=== PATIENT | female | born 1940 | race Hispanic/Latino ===

== ENCOUNTER 2021-04-05 19:46 | Inpatient (IN) | payer MEDICARE, SELFPAY ==
[2021-04-05 20:11] LABS: #Basophils 0.1 thou/uL (0.0-0.2); #Lymphocytes 1.5 thou/uL (1.20-3.40); #Monocytes 0.5 thou/uL (0.11-0.59); #Neutrophils 10.1 thou/uL (1.40-6.50); %Basophils 0.9 % (0.0-1.0); %Lymphocytes 12.2 % (21.0-51.0); %Monocytes 3.7 % (0.0-10.0); %Neutrophils 83.1 % (42.0-75.0); Hemoglobin 12.7 g/dL (12.0-16.0); Mean Corpuscular HGB CONC 33.1 g/dL (32.0-36.0); Mean Corpuscular Hemoglobin 32.9 pg (27.0-31.0); Mean Corpuscular Volume 99.5 fL (78.0-98.0); Mean Platelet Volume 6.7 fL (7.4-10.4); Platelet Count 297 thou/uL (130-400); RBC Distribution Width 13.4 % (11.5-14.5); Red Blood Cell (RBC) Count 3.85 mill/uL (4.20-5.40); White Blood Cell (WBC) Count 12.1 thou/uL (4.8-10.8)
[2021-04-05] MEDS ORDERED: Glycopyrrolate 0.4 MG/ 2 ML VIAL ONE (20:14)
[2021-04-05] MEDS ORDERED: Famotidine In NaCl 20 mg/50 ml Premix Bag ONE (20:14)
[2021-04-05] MEDS ORDERED: Ondansetron PF 4 MG/2 ML Vial ONE ×2 (20:14)
[2021-04-05] MEDS ORDERED: Ondansetron ODT 4 MG TAB ONE (20:14)
[2021-04-05 20:30] LABS: ALT (SGPT) 27 U/L (8-55); AST (SGOT) 77 U/L (5-34); Alkaline Phosphatase 121 U/L (40-110); Anion Gap 20 mmol/L (10-20); BUN (Urea Nitrogen) 9 mg/dL (9.8-20.1); Bilirubin, Total 1.1 mg/dL (0.2-1.2); Calc. Creatinine Clearance 0 mL/min (70-130); Calcium 8.4 mg/dL (7.8-10.44); Carbon Dioxide 16 mmol/L (23-31); Chloride 111 mmol/L (98-107); Globulin 2.5 g/dL (2.4-3.5); Glucose 239 mg/dL (83-110); Lipase 7 U/L (8-78); Protein, Total 5.5 g/dL (5.8-8.1); Sodium 144 mmol/L (136-145)
[2021-04-05 21:43] LABS: Bilirubin Negative (Negative); Blood, Urine Negative (Negative); Clarity Clear (Clear); Glucose, Urine (Dipstick) 250 mg/dL (Negative); Ketone, Urine 40 mg/dL (Negative); Leukocyte Small (Negative); Nitrite Negative (Negative); Protein, Urine (Dipstick) Negative (Neg-Trace); Urobilinogen 0.2 mg/dL (Less than 2)
[2021-04-05 22:02] LABS: Bacteria/HPF 3+ HPF (None Seen); RBC/HPF 0-3 HPF (0-3)
[2021-04-05] MEDS ORDERED: cefTRIAXone\\ROCEPHIN 2 GM VIAL ONE (22:07)
[2021-04-05] MEDS ORDERED: Sodium Chloride 0.9% 100 ML ONE (22:08)
[2021-04-05 23:02] VITALS: BMI 24.2
[2021-04-05 23:20] LABS: SARS-CoV-2 NAA Rapid Test Not Detected (NotDetected)
[2021-04-06] MEDS: NS 0.9% w/ 20 MEQ KCL 1,000 ML IV SCH ×2 (00:29→17:39)
[2021-04-06] MEDS ORDERED: Ondansetron PF 4 MG/2 ML Vial IVP PRN (00:30)
[2021-04-06] MEDS ORDERED: Acetaminophen 325 MG TAB PO PRN ×2 (00:30→12:24)
[2021-04-06 03:45] LABS: Lactic Acid 5.8 mmol/L (0.5-2.2)
[2021-04-06] MEDS: Ondansetron ODT 4 MG TAB SL PRN (04:32)
[2021-04-06] MEDS ORDERED: Polyethylene Glycol 3350 17 GM Packet PO PRN (06:19)
[2021-04-06] MEDS ORDERED: Dextrose 50% Abboject 50 ML SYRINGE SLOW IVP PRN (06:56)
[2021-04-06] MEDS ORDERED: HumaLOG 300 UNITS/3 ML VIAL SC PRN (06:56)
[2021-04-06] MEDS ORDERED: Dextrose 5% in Water 1,000 ML IV PRN (06:56)
[2021-04-06 07:04] LABS: #Basophils 0.1 thou/uL (0.0-0.2); #Lymphocytes 0.8 thou/uL (1.20-3.40); #Monocytes 0.5 thou/uL (0.11-0.59); #Neutrophils 9.7 thou/uL (1.40-6.50); %Basophils 0.5 % (0.0-1.0); %Eosinophils 0.1 % (0.0-10.0); %Lymphocytes 7.4 % (21.0-51.0); %Monocytes 4.3 % (0.0-10.0); %Neutrophils 87.8 % (42.0-75.0); Hemoglobin 11.4 g/dL (12.0-16.0); Mean Corpuscular HGB CONC 32.7 g/dL (32.0-36.0); Mean Corpuscular Hemoglobin 32.6 pg (27.0-31.0); Mean Corpuscular Volume 99.9 fL (78.0-98.0); Mean Platelet Volume 6.7 fL (7.4-10.4); Platelet Count 292 thou/uL (130-400); RBC Distribution Width 13.3 % (11.5-14.5); Red Blood Cell (RBC) Count 3.51 mill/uL (4.20-5.40)
[2021-04-06 07:16] LABS: ALT (SGPT) 26 U/L (8-55); AST (SGOT) 51 U/L (5-34); Albumin 3.1 g/dL (3.4-4.8); Alkaline Phosphatase 106 U/L (40-110); Anion Gap 19 mmol/L (10-20); BUN (Urea Nitrogen) 7 mg/dL (9.8-20.1); Bilirubin, Total 0.8 mg/dL (0.2-1.2); Calc. Creatinine Clearance 55 mL/min (70-130); Calcium 8.2 mg/dL (7.8-10.44); Carbon Dioxide 14 mmol/L (23-31); Chloride 117 mmol/L (98-107); Globulin 3.4 g/dL (2.4-3.5); Glucose 212 mg/dL (83-110); Potassium 3.9 mmol/L (3.5-5.1); Protein, Total 6.5 g/dL (5.8-8.1); Sodium 146 mmol/L (136-145)
[2021-04-06] MEDS ORDERED: FLU VACC QS2021-22(65YR UP)/PF 240 MCG/0.7 ML SYRINGE IM ONE (09:00)
[2021-04-06] MEDS: Enoxaparin Sodium 40 MG/0.4 ML SYRINGE SC SCH (09:30)
[2021-04-06] MEDS: Pantoprazole 40 MG GRANULES PACKET PO SCH (09:31)
[2021-04-06] MEDS: Saccharomyces boulardii 250 MG CAP PO SCH (09:31)
[2021-04-06] MEDS ORDERED: Sodium Bicarbonate 50 MEQ in Sodium Chloride 0.45% 1,000 ML IV SCH (12:15)
[2021-04-06] MEDS ORDERED: Sodium Bicarb 50 MEQ/50 ML Abboject 8.4% SYRINGE ONE (13:04)
[2021-04-06] MEDS: metFORMIN 500 MG TAB PO SCH (17:24)
[2021-04-06] MEDS: cefTRIAXone\\ROCEPHIN 1 GM in Sodium Chloride 0.9% 100 ML IVPB SCH (20:19)
[2021-04-06] MEDS: levETIRAcetam 250 MG TAB PO SCH (20:20)
[2021-04-06] MEDS: Lacosamide 50 mg Tablet PO SCH (20:21)
[2021-04-07 06:33] LABS: #Lymphocytes 1.1 thou/uL (1.20-3.40); #Monocytes 0.6 thou/uL (0.11-0.59); #Neutrophils 9.6 thou/uL (1.40-6.50); %Basophils 0.4 % (0.0-1.0); %Lymphocytes 9.8 % (21.0-51.0); %Monocytes 5.6 % (0.0-10.0); %Neutrophils 84.2 % (42.0-75.0); Hemoglobin 13.5 g/dL (12.0-16.0); Mean Corpuscular HGB CONC 33.4 g/dL (32.0-36.0); Mean Corpuscular Hemoglobin 32.9 pg (27.0-31.0); Mean Corpuscular Volume 98.6 fL (78.0-98.0); Mean Platelet Volume 6.6 fL (7.4-10.4); Platelet Count 264 thou/uL (130-400); White Blood Cell (WBC) Count 11.4 thou/uL (4.8-10.8)
[2021-04-07 06:41] LABS: Lactic Acid 1.9 mmol/L (0.5-2.2)
[2021-04-07 06:48] LABS: ALT (SGPT) 25 U/L (8-55); AST (SGOT) 50 U/L (5-34); Alkaline Phosphatase 100 U/L (40-110); Anion Gap 18 mmol/L (10-20); BUN (Urea Nitrogen) 9 mg/dL (9.8-20.1); Bilirubin, Total 0.8 mg/dL (0.2-1.2); Calc. Creatinine Clearance 51 mL/min (70-130); Calcium 8.5 mg/dL (7.8-10.44); Carbon Dioxide 14 mmol/L (23-31); Chloride 115 mmol/L (98-107); Globulin 3.4 g/dL (2.4-3.5); Glucose 153 mg/dL (83-110); Potassium 3.5 mmol/L (3.5-5.1); Protein, Total 6.4 g/dL (5.8-8.1); Sodium 143 mmol/L (136-145)
[2021-04-07] MEDS: Potassium Chloride 20 MEQ TAB PO SCH ×2 (09:17→09:50)
[2021-04-07] MEDS: Amlodipine 10 MG TAB PO SCH (09:47)
[2021-04-07] MEDS: levETIRAcetam 250 MG TAB PO SCH ×2 (09:47→20:34)
[2021-04-07] MEDS: metFORMIN 500 MG TAB PO SCH ×3 (09:48→18:10)
[2021-04-07] MEDS: Gabapentin 300 MG CAP PO SCH ×2 (09:48→12:08)
[2021-04-07] MEDS: Saccharomyces boulardii 250 MG CAP PO SCH (09:49)
[2021-04-07] MEDS: Enoxaparin Sodium 40 MG/0.4 ML SYRINGE SC SCH (09:50)
[2021-04-07] MEDS: Docusate 100 MG CAP PO SCH (09:51)
[2021-04-07] MEDS: Lacosamide 50 mg Tablet PO SCH (12:51)
[2021-04-07] MEDS: Pantoprazole 40 MG GRANULES PACKET PO SCH (12:51)
[2021-04-07] MEDS: Sodium Chloride 0.9% 1,000 ML IV SCH (13:00)
[2021-04-07] MEDS ORDERED: Acetaminophen 325 MG TAB PO PRN ×2 (13:46→19:13)
[2021-04-07] MEDS ORDERED: Iopamidol 370 76% 100 ML VIAL ONE (16:52)
[2021-04-07] MEDS: Ondansetron ODT 4 MG TAB SL PRN (17:37)
[2021-04-07] MEDS ORDERED: Ondansetron ODT 4 MG TAB SL PRN (19:30)
[2021-04-07] MEDS ORDERED: Ondansetron PF 4 MG/2 ML Vial IVP PRN (19:30)
[2021-04-07] MEDS: cefTRIAXone\\ROCEPHIN 1 GM in Sodium Chloride 0.9% 100 ML IVPB SCH (20:33)
[2021-04-08 05:39] LABS: Calc. Creatinine Clearance 66 mL/min (70-130)
[2021-04-08 06:55] VITALS: TEMP 98.7
[2021-04-08 07:56] LABS: #Monocytes 0.7 thou/uL (0.11-0.59); #Neutrophils 6.1 thou/uL (1.40-6.50); %Basophils 0.5 % (0.0-1.0); %Eosinophils 0.1 % (0.0-10.0); %Lymphocytes 22.9 % (21.0-51.0); %Monocytes 7.7 % (0.0-10.0); %Neutrophils 68.8 % (42.0-75.0); Hemoglobin 11.3 g/dL (12.0-16.0); Mean Corpuscular Hemoglobin 32.7 pg (27.0-31.0); Mean Platelet Volume 6.1 fL (7.4-10.4); Platelet Count 255 thou/uL (130-400); RBC Distribution Width 12.8 % (11.5-14.5); Red Blood Cell (RBC) Count 3.46 mill/uL (4.20-5.40); White Blood Cell (WBC) Count 8.8 thou/uL (4.8-10.8)
[2021-04-08 08:09] LABS: ALT (SGPT) 20 U/L (8-55); AST (SGOT) 39 U/L (5-34); Albumin 2.6 g/dL (3.4-4.8); Alkaline Phosphatase 79 U/L (40-110); Anion Gap 15 mmol/L (10-20); BUN (Urea Nitrogen) 7 mg/dL (9.8-20.1); Bilirubin, Total 0.7 mg/dL (0.2-1.2); Calc. Creatinine Clearance 64 mL/min (70-130); Calcium 8.2 mg/dL (7.8-10.44); Carbon Dioxide 20 mmol/L (23-31); Chloride 112 mmol/L (98-107); Globulin 2.7 g/dL (2.4-3.5); Glucose 117 mg/dL (83-110); Protein, Total 5.3 g/dL (5.8-8.1); Sodium 144 mmol/L (136-145)
[2021-04-08] MEDS ORDERED: Potassium Chloride 20 MEQ TAB PO SCH ×2 (08:31→08:45)
[2021-04-08] MEDS: Enoxaparin Sodium 40 MG/0.4 ML SYRINGE SC SCH (09:32)
[2021-04-08] MEDS: levETIRAcetam 250 MG TAB PO SCH (09:36)
[2021-04-08] MEDS: Amlodipine 10 MG TAB PO SCH (09:42)
[2021-04-08] MEDS ORDERED: 1/2 NS w/KCL 20 mEq 1,000 ML IV SCH (09:45)
[2021-04-08] MEDS: Ondansetron ODT 4 MG TAB SL PRN (11:57)
[2021-04-08] MEDS: Docusate 100 MG CAP PO SCH (12:03)
[2021-04-08] MEDS: metFORMIN 500 MG TAB PO SCH ×2 (12:04→18:04)
[2021-04-08] MEDS: Gabapentin 300 MG CAP PO SCH (12:04)
[2021-04-08] MEDS: Saccharomyces boulardii 250 MG CAP PO SCH (12:05)
[2021-04-08] MEDS: Sodium Chloride 0.9% 1,000 ML IV SCH (17:12)
[2021-04-08] MEDS: Potassium Chloride 20 MEQ TAB PO SCH (17:12)
[2021-04-08] MEDS ORDERED: Nitrofurantoin Macrocrystal 50 MG CAP PO SCH ×2 (17:30→21:00)
[2021-04-08 18:33] VITALS: BP 145/75
== END 2021-04-08 18:39 | DRG 690 ==
LOC: BURERS 19:46 → BURMED 20:15
PROVIDERS: ADMIT Family Medicine; ATTEND Family Medicine
DX: N39.0 Urinary tract infection, site not specified (principal); E87.2 Acidosis; E86.0 Dehydration; E87.6 Hypokalemia; I10 Essential (primary) hypertension; K59.00 Constipation, unspecified; R53.1 Weakness; Z20.822 Contact with and (suspected) exposure to COVID-19; E11.9 Type 2 diabetes mellitus without complications; Z86.73 Personal history of transient ischemic attack (TIA), and cerebral infarction without residual deficits; Z90.710 Acquired absence of both cervix and uterus
CPT/HCPCS: 36415; 36416; 70450; 71045; 74018; 74177; 80053; 81003; 81015; 82565; 83605; 83690; 85025; 87040; 87077; 87086; 87186; 96365; 96367; 96375; J0696; J1650; J1815; J1956; J2405; J3480; J3490; J7050; Q0162; Q9967; U0002

== ENCOUNTER 2021-04-08 18:46 | Inpatient (IN) | payer MEDICARE ==
[2021-04-08] MEDS ORDERED: Dextrose 50% Abboject 50 ML SYRINGE SLOW IVP PRN (19:41)
[2021-04-08] MEDS ORDERED: 1/2 NS w/KCL 20 mEq 1,000 ML IV SCH (19:41)
[2021-04-08] MEDS ORDERED: Polyethylene Glycol 3350 17 GM Packet PO PRN (19:41)
[2021-04-08] MEDS ORDERED: Acetaminophen 325 MG TAB PO PRN ×2 (19:41)
[2021-04-08] MEDS ORDERED: Dextrose 5% in Water 1,000 ML IV PRN (19:41)
[2021-04-08] MEDS ORDERED: Ondansetron PF 4 MG/2 ML Vial IVP PRN (19:41)
[2021-04-08] MEDS ORDERED: Nitrofurantoin Macrocrystal 50 MG CAP PO SCH (19:41)
[2021-04-08 19:53] VITALS: BMI 24.1
[2021-04-08] MEDS: levETIRAcetam 250 MG TAB PO SCH (21:12)
[2021-04-08] MEDS: Nitrofurantoin Macrocrystal 50 MG CAP PO SCH (21:26)
[2021-04-09 07:00] LABS: Anion Gap 13 mmol/L (10-20); BUN (Urea Nitrogen) Less than 4 mg/dL (9.8-20.1); Calc. Creatinine Clearance 77 mL/min (70-130); Calcium 8.1 mg/dL (7.8-10.44); Carbon Dioxide 26 mmol/L (23-31); Chloride 106 mmol/L (98-107); Glucose 98 mg/dL (83-110); Sodium 142 mmol/L (136-145)
[2021-04-09 07:19] LABS: Potassium 2.7 mmol/L (3.5-5.1)
[2021-04-09] MEDS ORDERED: 1/2 NS w/KCL 20 mEq 1,000 ML IV SCH (08:51)
[2021-04-09] MEDS ORDERED: Potassium Chloride 40 MEQ in Sodium Chloride 0.45% 1,000 ML IVPB SCH (09:15)
[2021-04-09] MEDS: Nitrofurantoin Macrocrystal 50 MG CAP PO SCH ×4 (12:11→22:42)
[2021-04-09] MEDS: levETIRAcetam 250 MG TAB PO SCH ×2 (12:11→22:14)
[2021-04-09] MEDS: Saccharomyces boulardii 250 MG CAP PO SCH (12:12)
[2021-04-09] MEDS: HumaLOG 300 UNITS/3 ML VIAL SC PRN (12:13)
[2021-04-09] MEDS: Docusate 100 MG CAP PO SCH (12:16)
[2021-04-09] MEDS: Amlodipine 10 MG TAB PO SCH (12:17)
[2021-04-09] MEDS: Enoxaparin Sodium 40 MG/0.4 ML SYRINGE SC SCH (12:17)
[2021-04-09] MEDS: Gabapentin 300 MG CAP PO SCH (12:19)
[2021-04-09] MEDS ORDERED: NS 0.9% w/ 40 MEQ KCL 1,000 ML IV SCH (12:30)
[2021-04-09] MEDS: metFORMIN 500 MG TAB PO SCH ×2 (12:51→17:41)
[2021-04-09] MEDS: Ondansetron ODT 4 MG TAB SL PRN (15:41)
[2021-04-09] MEDS: Nystatin 500,000 UNITS/5 ML UDCUP SSW SCH ×2 (17:43→22:15)
[2021-04-10 06:43] LABS: Anion Gap 14 mmol/L (10-20)
[2021-04-10 06:46] LABS: BUN (Urea Nitrogen) 4 mg/dL (9.8-20.1); Calc. Creatinine Clearance 77 mL/min (70-130); Calcium 7.9 mg/dL (7.8-10.44); Carbon Dioxide 16 mmol/L (23-31); Chloride 114 mmol/L (98-107); Glucose 103 mg/dL (83-110); Potassium 4.2 mmol/L (3.5-5.1); Sodium 140 mmol/L (136-145)
[2021-04-10] MEDS: Sodium Bicarbonate Tab 325 MG TAB PO SCH (10:39)
[2021-04-10] MEDS: levETIRAcetam 250 MG TAB PO SCH ×2 (10:39→20:25)
[2021-04-10] MEDS: Amlodipine 10 MG TAB PO SCH (10:39)
[2021-04-10] MEDS: Docusate 100 MG CAP PO SCH (10:39)
[2021-04-10] MEDS: Saccharomyces boulardii 250 MG CAP PO SCH (10:39)
[2021-04-10] MEDS: Enoxaparin Sodium 40 MG/0.4 ML SYRINGE SC SCH (10:40)
[2021-04-10] MEDS: Nystatin 500,000 UNITS/5 ML UDCUP SSW SCH ×4 (10:40→20:25)
[2021-04-10] MEDS: Ondansetron ODT 4 MG TAB SL PRN (11:05)
[2021-04-10] MEDS: Nitrofurantoin Macrocrystal 50 MG CAP PO SCH ×4 (11:05→20:25)
[2021-04-10] MEDS ORDERED: Scopolamine 1.5 mg/72 hour Patch TD SCH (12:00)
[2021-04-10] MEDS: Gabapentin 300 MG CAP PO SCH (16:06)
[2021-04-10] MEDS: metFORMIN 500 MG TAB PO SCH ×2 (16:06→17:36)
[2021-04-10] MEDS: Pantoprazole 40 MG GRANULES PACKET PO SCH (16:07)
[2021-04-11 06:24] LABS: Hemoglobin 11.9 g/dL (12.0-16.0); Platelet Count 255 thou/uL (130-400)
[2021-04-11 06:46] LABS: Calc. Creatinine Clearance 78 mL/min (70-130)
[2021-04-11 07:57] LABS: Anion Gap 14 mmol/L (10-20); BUN (Urea Nitrogen) 6 mg/dL (9.8-20.1); Calc. Creatinine Clearance 78 mL/min (70-130); Carbon Dioxide 20 mmol/L (23-31); Chloride 108 mmol/L (98-107); Glucose 108 mg/dL (83-110); Sodium 139 mmol/L (136-145)
[2021-04-11] MEDS: Enoxaparin Sodium 40 MG/0.4 ML SYRINGE SC SCH (10:15)
[2021-04-11] MEDS: Nystatin 500,000 UNITS/5 ML UDCUP SSW SCH ×4 (10:16→20:49)
[2021-04-11] MEDS: levETIRAcetam 250 MG TAB PO SCH ×2 (10:18→20:49)
[2021-04-11] MEDS: metFORMIN 500 MG TAB PO SCH ×2 (10:19→17:04)
[2021-04-11] MEDS: Amlodipine 10 MG TAB PO SCH (10:19)
[2021-04-11] MEDS: Sodium Bicarbonate Tab 325 MG TAB PO SCH (10:20)
[2021-04-11] MEDS: Saccharomyces boulardii 250 MG CAP PO SCH (10:20)
[2021-04-11] MEDS: Nitrofurantoin Macrocrystal 50 MG CAP PO SCH ×4 (10:20→20:49)
[2021-04-11] MEDS: Pantoprazole 40 MG GRANULES PACKET PO SCH (10:20)
[2021-04-11] MEDS: Docusate 100 MG CAP PO SCH (10:21)
[2021-04-11] MEDS: Gabapentin 300 MG CAP PO SCH (10:21)
[2021-04-11] MEDS: Ondansetron ODT 4 MG TAB SL PRN (11:43)
[2021-04-11] MEDS: HumaLOG 300 UNITS/3 ML VIAL SC PRN (12:45)
[2021-04-12 00:53] LABS: SARS-CoV-2 PCR by NAA Not Detected (NotDetected)
[2021-04-12] MEDS: Ondansetron ODT 4 MG TAB SL PRN (10:00)
[2021-04-12] MEDS: Nystatin 500,000 UNITS/5 ML UDCUP SSW SCH ×4 (10:04→21:51)
[2021-04-12] MEDS: metFORMIN 500 MG TAB PO SCH ×2 (10:06→18:08)
[2021-04-12] MEDS: levETIRAcetam 250 MG TAB PO SCH ×2 (10:07→21:52)
[2021-04-12] MEDS: Amlodipine 10 MG TAB PO SCH (10:09)
[2021-04-12] MEDS: Nitrofurantoin Macrocrystal 50 MG CAP PO SCH ×4 (10:09→21:51)
[2021-04-12] MEDS: Gabapentin 300 MG CAP PO SCH (10:12)
[2021-04-12] MEDS: Saccharomyces boulardii 250 MG CAP PO SCH (10:13)
[2021-04-12] MEDS: Docusate 100 MG CAP PO SCH (10:13)
[2021-04-12] MEDS: Pantoprazole 40 MG GRANULES PACKET PO SCH (10:13)
[2021-04-12] MEDS: Sodium Bicarbonate Tab 325 MG TAB PO SCH (10:13)
[2021-04-13] MEDS ORDERED: Polyethylene Glycol 3350 17 GM Packet PER TUBE PRN (20:12)
[2021-04-13] MEDS ORDERED: Dextrose 50% Abboject 50 ML SYRINGE SLOW IVP PRN (20:12)
[2021-04-13] MEDS ORDERED: Dextrose 5% in Water 1,000 ML IV PRN (20:13)
[2021-04-13] MEDS ORDERED: HumaLOG 300 UNITS/3 ML VIAL SC PRN (20:13)
[2021-04-13] MEDS ORDERED: levETIRAcetam 500 mg/5 ml Oral Solution PO SCH (21:00)
[2021-04-13] MEDS ORDERED: traMADol HCl 50 MG TAB PO PRN (22:52)
[2021-04-14] MEDS ORDERED: Dextrose 50% Abboject 50 ML SYRINGE SLOW IVP PRN (00:01)
[2021-04-14] MEDS ORDERED: Polyethylene Glycol 3350 17 GM Packet PER TUBE PRN (00:01)
[2021-04-14] MEDS ORDERED: Dextrose 5% in Water 1,000 ML IV PRN (00:01)
[2021-04-14] MEDS: Scopolamine 1.5 mg/72 hour Patch TD SCH (00:45)
[2021-04-14 05:24] LABS: Platelet Count 312 thou/uL (130-400)
[2021-04-14 05:55] LABS: Calc. Creatinine Clearance 73 mL/min (70-130)
[2021-04-14 06:13] LABS: Anion Gap 16 mmol/L (10-20); BUN (Urea Nitrogen) 8 mg/dL (9.8-20.1); Calc. Creatinine Clearance 74 mL/min (70-130); Calcium 8.6 mg/dL (7.8-10.44); Carbon Dioxide 21 mmol/L (23-31); Chloride 106 mmol/L (98-107); Glucose 102 mg/dL (83-110); Potassium 3.8 mmol/L (3.5-5.1); Sodium 139 mmol/L (136-145)
[2021-04-14] MEDS: Enoxaparin Sodium 40 MG/0.4 ML SYRINGE SC SCH (08:52)
[2021-04-14] MEDS: Pantoprazole 40 MG GRANULES PACKET PER TUBE SCH (08:53)
[2021-04-14] MEDS: Nystatin 500,000 UNITS/5 ML UDCUP SSW SCH ×4 (08:53→21:56)
[2021-04-14] MEDS: metFORMIN 500 MG TAB PER TUBE SCH ×2 (08:54→16:39)
[2021-04-14] MEDS: Sodium Bicarbonate Tab 325 MG TAB PER TUBE SCH (08:54)
[2021-04-14] MEDS: Nitrofurantoin Macrocrystal 50 MG CAP PER TUBE SCH ×4 (08:55→21:55)
[2021-04-14] MEDS: Amlodipine 10 MG TAB PER TUBE SCH (08:55)
[2021-04-14] MEDS: Gabapentin 300 MG CAP PO SCH (08:55)
[2021-04-14] MEDS: levETIRAcetam 250 MG TAB PER TUBE SCH ×2 (08:58→23:40)
[2021-04-14] MEDS: Saccharomyces boulardii 250 MG CAP PER TUBE SCH (08:59)
[2021-04-14] MEDS ORDERED: Docusate 100 MG CAP PER TUBE SCH (09:00)
[2021-04-14] MEDS: Ondansetron ODT 4 MG TAB SL PRN (10:49)
[2021-04-14] MEDS ORDERED: levETIRAcetam 500 mg/5 ml Oral Solution PER TUBE SCH (21:45)
[2021-04-14] MEDS: Acetaminophen 325 MG TAB PER TUBE PRN (21:56)
[2021-04-15] MEDS: Docusate Sodium 100 MG/10 ML UDCUP PER TUBE SCH (09:23)
[2021-04-15] MEDS: metFORMIN 500 MG TAB PER TUBE SCH ×2 (09:23→18:00)
[2021-04-15] MEDS: Saccharomyces boulardii 250 MG CAP PER TUBE SCH (09:24)
[2021-04-15] MEDS: Amlodipine 10 MG TAB PER TUBE SCH (09:24)
[2021-04-15] MEDS: Gabapentin 300 MG CAP PO SCH (09:24)
[2021-04-15] MEDS: Nitrofurantoin Macrocrystal 50 MG CAP PER TUBE SCH ×5 (09:24→21:15)
[2021-04-15] MEDS: Nystatin 500,000 UNITS/5 ML UDCUP SSW SCH ×4 (09:24→21:07)
[2021-04-15] MEDS: Pantoprazole 40 MG GRANULES PACKET PER TUBE SCH (09:25)
[2021-04-15] MEDS: Enoxaparin Sodium 40 MG/0.4 ML SYRINGE SC SCH (09:25)
[2021-04-15] MEDS: Sodium Bicarbonate Tab 325 MG TAB PER TUBE SCH (09:25)
[2021-04-15] MEDS: levETIRAcetam 500 mg/5 ml Oral Solution PER TUBE SCH ×3 (09:27→21:14)
[2021-04-15] MEDS: Ondansetron ODT 4 MG TAB SL PRN (18:00)
[2021-04-16] MEDS: Ondansetron ODT 4 MG TAB SL PRN ×2 (00:45→11:16)
[2021-04-16] MEDS: Docusate Sodium 100 MG/10 ML UDCUP PER TUBE SCH (09:40)
[2021-04-16] MEDS: levETIRAcetam 500 mg/5 ml Oral Solution PER TUBE SCH ×2 (09:40→20:05)
[2021-04-16] MEDS: Amlodipine 10 MG TAB PER TUBE SCH (09:41)
[2021-04-16] MEDS: Pantoprazole 40 MG GRANULES PACKET PER TUBE SCH (09:41)
[2021-04-16] MEDS: Sodium Bicarbonate Tab 325 MG TAB PER TUBE SCH (09:41)
[2021-04-16] MEDS: Gabapentin 300 MG CAP PO SCH (09:42)
[2021-04-16] MEDS: metFORMIN 500 MG TAB PER TUBE SCH ×2 (09:42→16:59)
[2021-04-16] MEDS: Enoxaparin Sodium 40 MG/0.4 ML SYRINGE SC SCH (09:42)
[2021-04-16] MEDS: Saccharomyces boulardii 250 MG CAP PER TUBE SCH (09:42)
[2021-04-16] MEDS: Nitrofurantoin Macrocrystal 50 MG CAP PER TUBE SCH ×4 (09:43→20:06)
[2021-04-16] MEDS: Nystatin 500,000 UNITS/5 ML UDCUP SSW SCH ×4 (09:44→20:06)
[2021-04-16] MEDS: HumaLOG 300 UNITS/3 ML VIAL SC PRN ×2 (12:03→20:06)
[2021-04-17] MEDS: Scopolamine 1.5 mg/72 hour Patch TD SCH ×2 (01:42→09:06)
[2021-04-17 05:39] LABS: Hemoglobin 11.3 g/dL (12.0-16.0); Platelet Count 287 thou/uL (130-400)
[2021-04-17 05:54] LABS: ALT (SGPT) 64 U/L (8-55); AST (SGOT) 200 U/L (5-34); Albumin 2.6 g/dL (3.4-4.8); Alkaline Phosphatase 245 U/L (40-110); Anion Gap 19 mmol/L (10-20); BUN (Urea Nitrogen) 19 mg/dL (9.8-20.1); Bilirubin, Total 2.3 mg/dL (0.2-1.2); Calc. Creatinine Clearance 39 mL/min (70-130); Calcium 8.7 mg/dL (7.8-10.44); Carbon Dioxide 19 mmol/L (23-31); Chloride 109 mmol/L (98-107); Globulin 2.3 g/dL (2.4-3.5); Glucose 215 mg/dL (83-110); Potassium 4.8 mmol/L (3.5-5.1); Protein, Total 4.9 g/dL (5.8-8.1); Sodium 142 mmol/L (136-145)
[2021-04-17] MEDS: levETIRAcetam 500 mg/5 ml Oral Solution PER TUBE SCH ×2 (08:42→20:31)
[2021-04-17] MEDS: Nystatin 500,000 UNITS/5 ML UDCUP SSW SCH ×4 (08:42→20:31)
[2021-04-17] MEDS: Sodium Bicarbonate Tab 325 MG TAB PER TUBE SCH (08:43)
[2021-04-17] MEDS: Pantoprazole 40 MG GRANULES PACKET PER TUBE SCH (08:43)
[2021-04-17] MEDS: Saccharomyces boulardii 250 MG CAP PER TUBE SCH (08:44)
[2021-04-17] MEDS: metFORMIN 500 MG TAB PER TUBE SCH ×2 (08:44→16:36)
[2021-04-17] MEDS: Gabapentin 300 MG CAP PO SCH (08:45)
[2021-04-17] MEDS: Enoxaparin Sodium 40 MG/0.4 ML SYRINGE SC SCH (08:46)
[2021-04-17] MEDS: Docusate Sodium 100 MG/10 ML UDCUP PER TUBE SCH ×2 (08:48→09:04)
[2021-04-17] MEDS: HumaLOG 300 UNITS/3 ML VIAL SC PRN ×2 (08:52→16:55)
[2021-04-17] MEDS: Amlodipine 10 MG TAB PER TUBE SCH (09:06)
[2021-04-17] MEDS: Nitrofurantoin Macrocrystal 50 MG CAP PER TUBE SCH ×4 (09:10→20:30)
[2021-04-17] MEDS ORDERED: Loperamide HCl 2 MG CAP PO PRN (14:56)
[2021-04-18 05:33] LABS: ALT (SGPT) 63 U/L (8-55); AST (SGOT) 159 U/L (5-34); Albumin 2.4 g/dL (3.4-4.8); Alkaline Phosphatase 273 U/L (40-110); Anion Gap 16 mmol/L (10-20); BUN (Urea Nitrogen) 19 mg/dL (9.8-20.1); Bilirubin, Total 2.3 mg/dL (0.2-1.2); Calc. Creatinine Clearance 58 mL/min (70-130); Calcium 8.5 mg/dL (7.8-10.44); Carbon Dioxide 21 mmol/L (23-31); Chloride 110 mmol/L (98-107); Globulin 2.3 g/dL (2.4-3.5); Glucose 214 mg/dL (83-110); Protein, Total 4.7 g/dL (5.8-8.1); Sodium 143 mmol/L (136-145)
[2021-04-18] MEDS: HumaLOG 300 UNITS/3 ML VIAL SC PRN ×2 (05:43→17:28)
[2021-04-18] MEDS: Nystatin 500,000 UNITS/5 ML UDCUP SSW SCH ×5 (09:17→21:57)
[2021-04-18] MEDS: levETIRAcetam 500 mg/5 ml Oral Solution PER TUBE SCH ×2 (09:17→21:56)
[2021-04-18] MEDS: Docusate Sodium 100 MG/10 ML UDCUP PER TUBE SCH (09:17)
[2021-04-18] MEDS: Sodium Bicarbonate Tab 325 MG TAB PER TUBE SCH (09:17)
[2021-04-18] MEDS: Saccharomyces boulardii 250 MG CAP PER TUBE SCH (09:18)
[2021-04-18] MEDS: Nitrofurantoin Macrocrystal 50 MG CAP PER TUBE SCH ×4 (09:18→21:57)
[2021-04-18] MEDS: metFORMIN 500 MG TAB PER TUBE SCH ×2 (09:18→16:32)
[2021-04-18] MEDS: Gabapentin 300 MG CAP PO SCH (09:19)
[2021-04-18] MEDS: Amlodipine 10 MG TAB PER TUBE SCH (09:19)
[2021-04-18] MEDS: Enoxaparin Sodium 40 MG/0.4 ML SYRINGE SC SCH (09:20)
[2021-04-18] MEDS: Pantoprazole 40 MG GRANULES PACKET PER TUBE SCH (09:21)
[2021-04-18] MEDS ORDERED: Potassium Bicarbonate/Cit Ac 25 MEQ TAB PER TUBE SCH (17:15)
[2021-04-18] MEDS ORDERED: Loperamide HCl 2 MG CAP PER TUBE PRN (17:15)
[2021-04-18] MEDS: Metoprolol Tartrate 50 MG TAB PER TUBE SCH (21:57)
[2021-04-19] MEDS: Pantoprazole 40 MG GRANULES PACKET PER TUBE SCH (10:11)
[2021-04-19] MEDS: Amlodipine 10 MG TAB PER TUBE SCH (10:11)
[2021-04-19] MEDS: Nitrofurantoin Macrocrystal 50 MG CAP PER TUBE SCH (10:12)
[2021-04-19] MEDS: Gabapentin 300 MG CAP PO SCH (10:12)
[2021-04-19] MEDS: metFORMIN 500 MG TAB PER TUBE SCH ×2 (10:12→17:08)
[2021-04-19] MEDS: Sodium Bicarbonate Tab 325 MG TAB PER TUBE SCH (10:13)
[2021-04-19] MEDS: Saccharomyces boulardii 250 MG CAP PER TUBE SCH (10:13)
[2021-04-19] MEDS: Enoxaparin Sodium 40 MG/0.4 ML SYRINGE SC SCH (10:14)
[2021-04-19] MEDS: Nystatin 500,000 UNITS/5 ML UDCUP SSW SCH ×4 (10:14→21:58)
[2021-04-19] MEDS: Docusate Sodium 100 MG/10 ML UDCUP PER TUBE SCH (10:14)
[2021-04-19] MEDS: Metoprolol Tartrate 50 MG TAB PER TUBE SCH ×2 (10:29→21:59)
[2021-04-19] MEDS: levETIRAcetam 500 mg/5 ml Oral Solution PER TUBE SCH ×2 (10:30→21:58)
[2021-04-19] MEDS: Potassium Bicarbonate/Cit Ac 25 MEQ TAB PER TUBE SCH (10:37)
[2021-04-19] MEDS: HumaLOG 300 UNITS/3 ML VIAL SC PRN ×2 (13:20→17:14)
[2021-04-19] MEDS ORDERED: levETIRAcetam 500 mg/5 ml Oral Solution PER TUBE SCH (22:00)
[2021-04-19] MEDS ORDERED: Metoprolol Tartrate 50 MG TAB PER TUBE SCH (22:00)
[2021-04-19 22:21] LABS: SARS-CoV-2 PCR by NAA Not Detected (NotDetected)
[2021-04-20 06:02] LABS: Hemoglobin 12.1 g/dL (12.0-16.0); Platelet Count 240 thou/uL (130-400)
[2021-04-20 06:13] LABS: Calc. Creatinine Clearance 62 mL/min (70-130)
[2021-04-20] MEDS: Docusate Sodium 100 MG/10 ML UDCUP PER TUBE SCH (09:08)
[2021-04-20] MEDS: Nystatin 500,000 UNITS/5 ML UDCUP SSW SCH ×5 (09:08→21:36)
[2021-04-20] MEDS: Scopolamine 1.5 mg/72 hour Patch TD SCH (09:09)
[2021-04-20] MEDS: levETIRAcetam 500 mg/5 ml Oral Solution PER TUBE SCH ×2 (09:09→21:17)
[2021-04-20] MEDS: Metoprolol Tartrate 50 MG TAB PER TUBE SCH ×2 (09:12→21:17)
[2021-04-20] MEDS: Saccharomyces boulardii 250 MG CAP PER TUBE SCH (09:12)
[2021-04-20] MEDS: Pantoprazole 40 MG GRANULES PACKET PER TUBE SCH (09:13)
[2021-04-20] MEDS: metFORMIN 500 MG TAB PER TUBE SCH ×2 (09:13→17:23)
[2021-04-20] MEDS: Gabapentin 300 MG CAP PO SCH (09:14)
[2021-04-20] MEDS: Amlodipine 10 MG TAB PER TUBE SCH (09:17)
[2021-04-20] MEDS: Enoxaparin Sodium 40 MG/0.4 ML SYRINGE SC SCH (09:18)
[2021-04-20] MEDS: Potassium Bicarbonate/Cit Ac 25 MEQ TAB PER TUBE SCH (09:20)
[2021-04-20] MEDS: HumaLOG 300 UNITS/3 ML VIAL SC PRN ×2 (09:21→13:36)
[2021-04-21 06:12] VITALS: TEMP 97.9
[2021-04-21] MEDS: Docusate Sodium 100 MG/10 ML UDCUP PER TUBE SCH (09:31)
[2021-04-21] MEDS: levETIRAcetam 500 mg/5 ml Oral Solution PER TUBE SCH (09:31)
[2021-04-21] MEDS: Nystatin 500,000 UNITS/5 ML UDCUP SSW SCH ×2 (09:31→12:46)
[2021-04-21] MEDS: Enoxaparin Sodium 40 MG/0.4 ML SYRINGE SC SCH (09:31)
[2021-04-21] MEDS: Pantoprazole 40 MG GRANULES PACKET PER TUBE SCH (09:32)
[2021-04-21] MEDS: metFORMIN 500 MG TAB PER TUBE SCH (09:33)
[2021-04-21] MEDS: Saccharomyces boulardii 250 MG CAP PER TUBE SCH (09:33)
[2021-04-21] MEDS: Metoprolol Tartrate 50 MG TAB PER TUBE SCH (09:34)
[2021-04-21] MEDS: Gabapentin 300 MG CAP PO SCH (09:34)
[2021-04-21] MEDS: Amlodipine 10 MG TAB PER TUBE SCH (09:35)
[2021-04-21] MEDS: Sodium Bicarbonate Tab 325 MG TAB PER TUBE SCH (09:35)
[2021-04-21 09:38] VITALS: BP 158/79
[2021-04-21] MEDS: Potassium Bicarbonate/Cit Ac 25 MEQ TAB PER TUBE SCH (09:38)
[2021-04-21] MEDS: Acetaminophen 325 MG TAB PER TUBE PRN (10:08)
[2021-04-21] MEDS: HumaLOG 300 UNITS/3 ML VIAL SC PRN ×2 (10:09→12:46)
== END 2021-04-21 15:30 | disposition hospice, home (50) | DRG 690 ==
LOC: BURMED 18:46
PROVIDERS: ADMIT Family Medicine; ATTEND Family Medicine
DX: N39.0 Urinary tract infection, site not specified (principal); E87.2 Acidosis; R18.8 Other ascites; J90 Pleural effusion, not elsewhere classified; E86.0 Dehydration; E87.6 Hypokalemia; R53.1 Weakness; R10.9 Unspecified abdominal pain; G40.909 Epilepsy, unspecified, not intractable, without status epilepticus; R13.10 Dysphagia, unspecified; R33.9 Retention of urine, unspecified; I10 Essential (primary) hypertension; E11.9 Type 2 diabetes mellitus without complications; K44.9 Diaphragmatic hernia without obstruction or gangrene; Z20.822 Contact with and (suspected) exposure to COVID-19; E80.6 Other disorders of bilirubin metabolism; Z93.1 Gastrostomy status; Z90.710 Acquired absence of both cervix and uterus
CPT/HCPCS: 36415; 36416; 80048; 80053; 82565; 85014; 85018; 85049; J1650; J1815; J2405; J3480; Q0162; U0003; U0005